=== PATIENT | male | born 1965 | race African-American/Black ===

== ENCOUNTER 2024-06-27 20:24 | Emergency (ER) | payer SELFPAY ==
[~2024-06-27] VITALS: Ht 170.2 cm; Wt 73.0 kg
[2024-06-27 20:32] VITALS: O2SAT 99
[2024-06-27] MEDS ORDERED: OLANZAPINE 5MG TABLET PO SCH (21:15)
[2024-06-27] MEDS ORDERED: IBUPROFEN 400MG TABLET PO ONE (21:30)
[2024-06-27 22:47] LABS: CHLORIDE 107 mEq/L (98-107); POTASSIUM 3.7 mEq/L (3.5-5.1); SODIUM 138 mEq/L (136-145)
[2024-06-27 22:48] LABS: CARBON DIOXIDE 27 mEq/L (21-32)
[2024-06-27 22:49] LABS: BASOPHILS % 1.3 % (0.0-2.0); EOSINOPHILS % 4.5 % (0.0-5.0); HEMATOCRIT. 42.6 % (42.0-52.0); HEMOGLOBIN. 13.9 g/dL (14.0-18.0); MEAN CORPUSCULAR HEMOGLOBIN 30.1 pg (28.0-32.0); MEAN CORPUSCULAR HGB CONC 32.5 g/dL (31.0-37.0); MEAN CORPUSCULAR VOLUME 92.6 fL (80.0-94.0); MEAN PLATELET VOLUME 7.8 fl (7.4-10.4); MONOCYTES % 10.1 % (2.0-8.0); NEUTROPHILS % 59.1 % (40.0-76.0); PLATELET 204 x1000/uL (130-400); RED CELL DISTRIBUTION WIDTH 13.9 % (11.6-14.6)
[2024-06-27 22:53] LABS: CREATININE 0.8 mg/dL (0.6-1.3); GLUCOSE 72 mg/dL (70-105)
[2024-06-27 22:54] LABS: ETHANOL BLOOD < 10 mg/dL (<10); UREA NITROGEN BLOOD 10 mg/dL (9-23)
[2024-06-27 22:56] LABS: ACETAMINOPHEN < 2 ug/mL (10-30)
[2024-06-27 23:12] LABS: CLARITY URINE CLEAR (CLEAR); COLOR URINE YELLOW (YELLOW); GLUCOSE URINE NEGATIVE (NEGATIVE); KETONES URINE NEGATIVE (NEGATIVE); LEUKOCYTE ESTERASE URINE NEGATIVE (NEGATIVE); NITRITE URINE NEGATIVE (NEGATIVE); OCCULT BLOOD URINE NEGATIVE (NEGATIVE); PROTEIN URINE NEGATIVE (NEGATIVE)
[2024-06-27] MEDS: OLANZAPINE 5MG TABLET PO NR (23:16)
[2024-06-27] MEDS: IBUPROFEN 400MG TABLET PO NR (23:17)
[2024-06-27 23:20] LABS: *AMPHETAMINES SCREEN URINE NEGATIVE (NEGATIVE); *BARBITURATES SCREEN URINE NEGATIVE (NEGATIVE); *BENZODIAZEPINES SCREEN URINE NEGATIVE (NEGATIVE); *COCAINE SCREEN URINE NEGATIVE (NEGATIVE); CANNABINOID URINE SCREEN NEGATIVE (NEGATIVE); ECSTASY MDMA SCREEN URINE NEGATIVE (NEGATIVE); METHADONE URINE SCREEN NEGATIVE (NEGATIVE); OPIATES URINE SCREEN NEGATIVE (NEGATIVE); PHENCYCLIDINE URINE SCREEN NEGATIVE (NEGATIVE)
[2024-06-28] MEDS: IBUPROFEN 400MG TABLET PO ONE (22:30)
[2024-06-28] MEDS: OLANZAPINE 10MG TABLET PO SCH (22:30)
[2024-06-30 08:00] VITALS: BP 132/74; PULSE 81; RESP 18; TEMP 36.94740; O2SAT 100
== END 2024-06-30 13:00 | disposition home or self-care (01) ==
LOC: ER 20:24 → EDBD 20:24 → ER 06-30 13:00
DX: R45.851 Suicidal ideations (principal); F20.9 Schizophrenia, unspecified; Z20.822 Contact with and (suspected) exposure to COVID-19
CPT/HCPCS: 36415; 80048; 80305; 80307; 80320; 80329; 81003; 85025; 87426; 99285; G0480